=== PATIENT | male | born 1940 | race Caucasian/White ===

== ENCOUNTER → 2022-04-17 09:02 | Outpatient (BNVA) | payer MEDICARE, SELFPAY | PROVIDERS: PCP Internal Medicine; Visit Provider Anesthesiology | DX: E11.40 Type 2 diabetes mellitus with diabetic neuropathy, unspecified (principal); I50.9 Heart failure, unspecified; G89.4 Chronic pain syndrome | CPT/HCPCS: 99202 ==

== ENCOUNTER 2022-06-15 09:18 | Outpatient (REF) | payer MEDICARE, SELFPAY ==
[2022-06-15 10:53] LABS: MANUAL DIFF FLAG NO
[2022-06-15 11:44] LABS: Basophils Percent Auto 0.3 % (0-2); Eosinophils Percent Auto 0.3 % (0-4); Hematocrit 34.2 % (42.0-52.0); Hemoglobin 11.2 g/dl (14.0-18.0); Imm Gran Abs Auto 0.03 X10*3/uL (0.00-0.03); Imm Gran Pct Auto 0.3 % (0.0-0.4); Lymphocytes Absolute Auto 2.3 X10*3/uL (1.2-4.9); Mean Corpuscular HGB Conc 32.7 g/dl (31.0-36.0); Mean Corpuscular Hemoglobin 26.2 pg (27.0-33.0); Mean Corpuscular Volume 80.1 fL (80.0-98.0); Mean Platelet Volume 10.5 fL (9.4-12.4); Monocytes Percent Auto 10.4 % (2-11); Neutrophils Absolute Auto 6.6 x10*3/uL (2.0-8.3); Neutrophils Percent Auto 65.7 % (45-73); Platelet Count 236 X10*3/uL (160-400); Red Blood Count 4.27 X10*6/uL (4.60-5.80); Red Cell Distribution Width 15.9 % (11.0-16.0)
[2022-06-15 12:17] LABS: Alanine Aminotransferase 19 U/L (0-40); Albumin Level 3.8 g/dL (3.5-5.0); Alkaline Phosphatase 165 U/L (39-117); Aspartate Amino Transferase 17 U/L (5-37); Bilirubin Direct 0.5 mg/dL (0.0-0.5); Bilirubin Total 1.4 mg/dL (0.0-1.0); Total Protein 6.6 g/dL (6.5-8.0)
[2022-06-15 12:29] LABS: Erythrocyte Sedimentation Rate 12 MM/HR (0-15)
[2022-06-16 18:19] LABS: Immunoglobulin E 23 kU/L (<OR=114)
[2022-06-20 13:41] LABS: TSpotTB Invalid (Negative)
[2022-06-21 05:43] LABS: IgA 299 mg/dL (70-320); IgG 1037 mg/dL (600-1540); IgM 53 mg/dL (50-300)
== END 2022-06-15 09:19 | disposition home or self-care (01) ==
LOC: HO.LAB 09:18
PROVIDERS: PCP Internal Medicine; Visit Provider Hospitalist
DX: Z11.1 Encounter for screening for respiratory tuberculosis (principal); J41.1 Mucopurulent chronic bronchitis; R04.2 Hemoptysis; K74.60 Unspecified cirrhosis of liver; C76.0 Malignant neoplasm of head, face and neck
CPT/HCPCS: 36415; 80076; 82784; 82785; 85025; 85652; 86481; 87070; 87205; 94640; 99202

== ENCOUNTER 2022-06-22 07:43 | Outpatient (REF) | payer MEDICARE, SELFPAY ==
--- NOTE | 2022-06-22 09:52 | PFT_ITS ---
FLOWS: FEV1 69% of predicted at 1.96 L. FVC 71% of predicted at 2.87 L. FEV1 to FVC ratio of 0.68. No bronchodilator response except in small to medium airways. LUNG VOLUMES: Total lung capacity 73% of predicted at 5.20 L. Residual volume 81% of predicted at 2.19 L. Slow vital capacity 68% of predicted at 3.01 L. Expiratory reserve volume 36% of predicted at 0.43 L. Diffusion capacity is moderately decreased. IMPRESSION: Combined moderate obstructive and moderate restrictive ventilatory defect with no bronchodilator response except in small to medium airways. Decreased expiratory reserve volume suggests extrathoracic restriction likely secondary to abdominal obesity. Decreased diffusion capacity suggests emphysema. MD SHONA Rodríguez/MODL / [id number]
== END 2022-06-22 07:44 | disposition home or self-care (01) ==
LOC: HO.RESP 07:43
PROVIDERS: Visit Provider Hospitalist
DX: J41.1 Mucopurulent chronic bronchitis (principal)
CPT/HCPCS: 94060; 94727; 94729

== ENCOUNTER → 2022-07-17 10:14 | Outpatient (BNVA) | payer MEDICARE, SELFPAY | PROVIDERS: PCP Internal Medicine; Visit Provider Hospitalist | DX: J41.1 Mucopurulent chronic bronchitis (principal); R04.2 Hemoptysis; K74.60 Unspecified cirrhosis of liver; C76.0 Malignant neoplasm of head, face and neck | CPT/HCPCS: 99212 ==

== ENCOUNTER 2022-08-18 13:08 | Outpatient (REF) | payer MEDICARE, SELFPAY ==
[2022-08-18 15:07] LABS: Appearance Urine Clear; Color Urine Yellow; Glucose Urine UA Negative (Negative); Leukocyte Esterase Urine Moderate (2+) (Negative); Nitrite Urine Negative (Negative); PH 5.5 (5.0-9.0); UMIC TRIGGER UA YES; Urine Blood Negative (Negative); Urine Ketones Negative (Negative); Urine Protein Negative (Neg-Trace)
[2022-08-18 15:08] LABS: INTERNATIONAL NORM RATIO 1.7 (0.9-1.1); Prothrombin Time 20.3 SEC (10.0-13.1)
[2022-08-18 15:12] LABS: Bacteria Urine 3+ (None Seen); Hyaline Casts Urine 0-2 /LPF (0-2); RBC Urine 0-2 /HPF (0-2); Squamous Epithelial Cell Urine 0-2 /HPF (0-2); WBC Urine 21-50 /HPF (0-5)
[2022-08-18 16:19] LABS: Alanine Aminotransferase 10 U/L (0-40); Albumin Level 4.1 g/dL (3.5-5.0); Alkaline Phosphatase 128 U/L (39-117); Anion Gap 13 (12-20); Aspartate Amino Transferase 14 U/L (5-37); Blood Urea Nitrogen 30 mg/dL (9-16); Calcium 8.9 mg/dL (8.4-10.2); Carbon Dioxide 26 mmol/L (22-29); Chloride 105 mmol/L (96-108); Estimated Glomerular Filt Rate 53; Gamma Glutamyl Transpeptidase 228 U/L (11-51); Glucose Random 182 mg/dL (60-115); Iron 34 mcg/dL (45-160); Percent Iron Saturation 11 % (15-50); Potassium 4.1 mmol/L (3.3-5.1); Sodium 140 mmol/L (135-145); Total Iron Binding Capacity 308 mcg/dL (228-428); Total Protein 6.9 g/dL (6.5-8.0); Unsaturated Iron Binding 274 ug/dL
[2022-08-18 16:33] LABS: Ferritin 50 ng/mL (20-250)
[2022-08-21 04:16] LABS: Hepatitis A Antibody IgG REACTIVE (Nonreactive); ~Hepatitis A Antibody IgG 9.66 S/CO (0.00-0.99)
[2022-08-21 04:29] LABS: HBc Num1 0.12 S/CO (0.00-0.79); HBsAGNum1 0.28 S/CO (0.00-0.99); Hepatitis B Core Antibody Nonreactive (Nonreactive); Hepatitis B Surface Antigen Negative (Negative); ~HepC Num1 0.18 S/CO (0.00-0.79); ~Hepatitis B Surface Antibody NONREACTIVE (Nonreactive); ~Hepatitis C Antibody Nonreactive (Nonreactive)
[2022-08-24 12:33] LABS: Liver Kidney Microsomal Ab <=20.0 U (<=20.0)
[2022-08-24 16:29] LABS: Anti Nuclear Antibody Pattern Nuclear, Homogeneous; Anti Nuclear Antibody Screen POSITIVE (NEGATIVE)
[2022-08-24 20:58] LABS: Alk.Phos Iso. Macrohepatic 0 % (<=0); Alk.Phos Isoenzymes Bone 22 % (28-66); Alk.Phos Isoenzymes Intest 11 % (1-24); Alk.Phos Isoenzymes Liver 68 % (25-69); Alk.Phos Isoenzymes Placental 0 % (<=0); Alk.Phos Isoenzymes Total 108 U/L (35-144)
[2022-08-25 13:03] LABS: Smooth Muscle Antibody <20 U (<20)
== END 2022-08-18 13:09 | disposition home or self-care (01) ==
LOC: HO.LAB 13:08
PROVIDERS: PCP Internal Medicine; Visit Provider Internal Medicine
DX: K74.60 Unspecified cirrhosis of liver (principal); K76.89 Other specified diseases of liver; R18.8 Other ascites; J44.9 Chronic obstructive pulmonary disease, unspecified; L98.9 Disorder of the skin and subcutaneous tissue, unspecified; I50.9 Heart failure, unspecified; Z85.810 Personal history of malignant neoplasm of tongue; Z87.891 Personal history of nicotine dependence; Z79.01 Long term (current) use of anticoagulants; Z11.59 Encounter for screening for other viral diseases; Z72.89 Other problems related to lifestyle
CPT/HCPCS: 36415; 80053; 81001; 82728; 82977; 83540; 84080; 85610; 86015; 86038; 86039; 86376; 86704; 86706; 86708; 86803; 87340; 99202

== ENCOUNTER 2022-08-30 08:13 | Day surgery (SDC) | payer OTHER, SELFPAY ==
[2022-08-30] VITALS (8 sets, daily range): BP systolic 109–120; BP diastolic 60–72; PULSE 60–97; RESP 14–18; TEMP 36.6–36.8; O2SAT 94–95; BMI 30.7
--- NOTE | ~2022-08-30 | US_ITS ---
EXAMINATION: US-GUIDED PARACENTESIS CLINICAL INDICATION: Ascites. COMPARISON: None available. TECHNIQUE: Following explaining ultrasound-guided paracentesis procedure, benefits and risk, a written consent was obtained. Patient was placed supine on ultrasound stretcher and preliminary ultrasound imaging was obtained. An optimal site was selected, marked, cleaned and draped in the usual sterile manner. 1% local Xylocaine was inserted at puncture site. Through a small skin incision, a 5-English SkuRun catheter was advanced into the right lower quadrant peritoneal space. After observing fluid return, the stylet was withdrawn and catheter connected to vacuum bottle via connecting cannula. After obtaining all fluid and observing normal fluid return, catheter was withdrawn and complete hemostasis achieved at puncture site. Sterile dressing applied postprocedure. Patient tolerated the procedure extremely well. FINDINGS: There is moderate free fluid in the peritoneal space. Approximately 2.9 L of cloudy red fluid was removed. US/US paracentesis abd w/image IMPRESSION: Successful ultrasound-guided diagnostic and therapeutic paracentesis.
[2022-08-30 08:42] LABS: Glucose, Whole Blood 200 mg/dL (60-115)
[2022-08-30 09:30] LABS: MANUAL DIFF FLAG NO
[2022-08-30 09:33] LABS: Basophils Percent Auto 0.5 % (0-2); Eosinophils Absolute Auto 0.1 X10*3/uL (0.0-0.4); Eosinophils Percent Auto 1.4 % (0-4); Hematocrit 34.1 % (42.0-52.0); Hemoglobin 11.1 g/dl (14.0-18.0); Imm Gran Abs Auto 0.02 X10*3/uL (0.00-0.03); Imm Gran Pct Auto 0.3 % (0.0-0.4); Lymphocytes Absolute Auto 1.3 X10*3/uL (1.2-4.9); Lymphocytes Percent Auto 20.2 % (20-40); Mean Corpuscular HGB Conc 32.6 g/dl (31.0-36.0); Mean Corpuscular Hemoglobin 26.4 pg (27.0-33.0); Mean Platelet Volume 10.5 fL (9.4-12.4); Monocytes Percent Auto 15.2 % (2-11); Neutrophils Percent Auto 62.4 % (45-73); Platelet Count 279 X10*3/uL (160-400); Red Blood Count 4.21 X10*6/uL (4.60-5.80); Red Cell Distribution Width 16.1 % (11.0-16.0); White Blood Count 6.4 X10*3/uL (4.8-10.8)
[2022-08-30] MEDS: Lidocaine HCl 1 % MPF 5 ML VIAL SUBCUT (10:42)
[2022-08-30 11:00] LABS: MN% 89.4 %; PMN% 10.6 %; RBC Peritoneal Fluid 0.029 X10*6/uL; WBC Peritoneal Fluid 1.772 X10*3/uL
[2022-08-30 12:07] LABS: Neutrophils Peritoneal Fluid 7 %
[2022-08-30 12:08] LABS: BF Shift QC OK YES; Lymphocyte Peritoneal Fl 28 %; Monocytes Peritoneal Fl 2 %; Other Peritioneal Fl 63 %
[2022-08-30 18:11] LABS: Total Protein Peritoneal Fluid 4.4 GM/DL
== END 2022-08-30 12:49 | disposition home or self-care (01) ==
PROVIDERS: Radiology Diagnostic Radiology; PCP Internal Medicine; Visit Provider Internal Medicine
DX: R18.8 Other ascites (principal); K74.60 Unspecified cirrhosis of liver; I48.91 Unspecified atrial fibrillation; I25.10 Atherosclerotic heart disease of native coronary artery without angina pectoris; I11.0 Hypertensive heart disease with heart failure; I50.9 Heart failure, unspecified; Z95.1 Presence of aortocoronary bypass graft; J44.9 Chronic obstructive pulmonary disease, unspecified; E78.00 Pure hypercholesterolemia, unspecified; G47.33 Obstructive sleep apnea (adult) (pediatric); Z79.01 Long term (current) use of anticoagulants; Z87.891 Personal history of nicotine dependence
CPT/HCPCS: 36415; 49083; 82042; 82947; 84157; 85025; 88112; 88305; 89051

== ENCOUNTER 2022-09-12 10:27 | Outpatient (REF) | payer OTHER, SELFPAY ==
--- NOTE | ~2022-09-12 | MR_ITS ---
EXAMINATION: MR ABDOMEN WITHOUT AND WITH CONTRAST CLINICAL INFORMATION: Other specified diseases of the liver. Liver cyst. COMPARISON: Previous MRI July 2017 and ultrasound guided paracentesis August 2022. TECHNIQUE: MR abdomen was performed without and with use of 10 mL intravenous Gadavist contrast. Postcontrast images are performed in multiphase dynamic sequences. Imaging was performed in 3 planes. FINDINGS: LUNG BASES: Small loculated right pleural effusion. The heart is slightly enlarged. LIVER, GALLBLADDER, AND BILIARY TREE: Cirrhotic-appearing liver. There is no appreciable signal loss in the liver to suggest significant fatty infiltration. There are multiple liver cysts. Largest cysts measure approximately 1 x 1.5 cm. No suspicious liver lesion. The gallbladder is unremarkable. There is no biliary duct dilatation. PANCREAS: Unremarkable. SPLEEN: Small splenic versus splenule. This measures 3.5 cm in length. There is a 0.7 cm lesion inferiorly suggestive of a cyst. ADRENAL GLANDS: Normal. KIDNEYS AND URETERS: Multiple bilateral renal simple appearing cysts. Largest cyst measures 5.6 x 6.3 cm exophytic to the upper pole of the left kidney. No hydronephrosis. GASTROINTESTINAL TRACT: No bowel obstruction. Stool throughout the colon questionable for constipation. ABDOMEN/ABDOMINAL WALL: There is a small amount of ascites. There are multiple peritoneal masses seen, greatest in the left upper quadrant. These are intermediate signal on T1 and T2-weighted sequences and demonstrate homogeneous enhancement. The lesions enhance on early arterial phase imaging and remain enhanced on later sequences. Lesions follow the signal of the questioned remaining small spleen versus splenule. These appear similar to previous outside exam July 2017 and probably represent splenules. There is a similar signal lesion in the left abdominal wall for example axial image 75 postcontrast series 102 that is stable as well. No hernia. LYMPH NODES: No lymphadenopathy. VASCULAR: Lower abdominal aortic aneurysm measuring 3.5 x 4.2 cm in AP and transverse dimension. This is similar to outside MRI from 2018. Hepatic veins and intrahepatic IVC appear prominent questionable for evidence of right heart compromise. The portal and hepatic veins are patent. There are small left upper quadrant varices. OSSEOUS STRUCTURES: Degenerative changes of the spine. Bright subcentimeter lesion in the L1 vertebral body probably representing a benign hemangioma. MR/MR abdomen wo/w con IMPRESSION: Cirrhotic-appearing liver. Multiple liver cysts. No suspicious liver lesion. Question small spleen versus splenule. This contains a 7 mm cyst. This is similar to 2018 exam. Numerous enhancing peritoneal lesions similar to 2018 probably representing multiple splenules or splenosis. This includes a small subcentimeter lesion in the left anterior lateral abdominal wall. Small amount of ascites. Small varices. Bilateral renal cysts. Abdominal aortic aneurysm measuring 3.5 x 4.2 cm in AP and transverse dimension. This is not appreciably changed from previous MRI July 2017.
== END 2022-09-12 10:28 | disposition home or self-care (01) ==
LOC: HO.MRI 10:27
PROVIDERS: PCP Internal Medicine; Visit Provider Internal Medicine
DX: K76.89 Other specified diseases of liver (principal)
CPT/HCPCS: 74183; A9585

== ENCOUNTER → 2022-09-22 12:44 | Outpatient (BNVA) | payer OTHER, SELFPAY | PROVIDERS: PCP Internal Medicine; Visit Provider Internal Medicine | DX: R18.8 Other ascites (principal); K74.60 Unspecified cirrhosis of liver; I50.810 Right heart failure, unspecified; L98.9 Disorder of the skin and subcutaneous tissue, unspecified | CPT/HCPCS: 99212 ==

== ENCOUNTER → 2022-10-18 10:59 | Outpatient (BNVA) | payer MEDICARE, SELFPAY | PROVIDERS: PCP Internal Medicine; Visit Provider Hospitalist | DX: R04.2 Hemoptysis (principal); J41.1 Mucopurulent chronic bronchitis; K74.60 Unspecified cirrhosis of liver; C76.0 Malignant neoplasm of head, face and neck | CPT/HCPCS: 99212 ==

== ENCOUNTER 2022-11-28 14:29 | Outpatient (REF) | payer MEDICARE, SELFPAY ==
[2022-11-28 15:20] LABS: Hematocrit 44.4 % (42.0-52.0); Mean Corpuscular HGB Conc 31.5 g/dl (31.0-36.0); Mean Corpuscular Hemoglobin 23.6 pg (27.0-33.0); Platelet Count 319 X10*3/uL (160-400); Red Blood Count 5.92 X10*6/uL (4.60-5.80); Red Cell Distribution Width 16.9 % (11.0-16.0); White Blood Count 9.3 X10*3/uL (4.8-10.8)
[2022-11-28 16:08] LABS: Iron 35 mcg/dL (45-160); Percent Iron Saturation 12 % (15-50); Total Iron Binding Capacity 289 mcg/dL (228-428); Unsaturated Iron Binding 254 ug/dL
[2022-11-28 16:24] LABS: Ferritin 58 ng/mL (20-250)
[2022-11-30 16:03] LABS: Immunoglobulin A 431 mg/dL (70-320)
[2022-12-04 13:44] LABS: Transglutaminase IgA <1.0 U/mL
== END 2022-11-28 14:30 | disposition home or self-care (01) ==
LOC: HO.LAB 14:29
PROVIDERS: PCP Internal Medicine; Visit Provider Internal Medicine
DX: D64.9 Anemia, unspecified (principal)
CPT/HCPCS: 36415; 82728; 82784; 83540; 85027; 86364

== ENCOUNTER 2022-12-22 12:37 | Day surgery (SDC) | payer OTHER, SELFPAY ==
[2022-12-20 14:53] VITALS: BMI 29.1
--- NOTE | 2022-12-21 14:45 | PC.NURSE ---
Patient expressed concerns regarding late appt time/NPO midnight & diabetic status. Anesthesia Dr Valle consulted and had this RN advise the patient that he is to have no solid foods after midnight tonight, but he is able to have clear liquids until 8am. Patient also advised not to take any diabetic medications in the morning and to check sugars. Patient reassured we would check his sugar on arrival & give medications through the IV as necessary. Patient verbalized agreeance with the plan - he would only have max yobani to drink after midnight, would take only his diltiazem (per written instructions) in the morning and have nothing by mouth after 8am.
--- NOTE | 2022-12-21 14:55 | PC.NURSE ---
Patient time of arrival moved up d/t cancellation. Called back to advise no clear liquids after 0700. Verbalized understanding of new plan and time of arrival.
--- NOTE | 2022-12-22 12:45 | HO.ANESPROP2 ---
[facility] Active Problems Active Problems: All Active Problems (Updated 12/20/22 @ 14:52 by Seda Brown RN) Diabetic neuropathy (Acute) Chronic pain syndrome (Acute) Congestive heart failure (Acute) Ascites (Acute) Skin lesion of cheek (Acute) Anemia (Acute) Head and neck cancer (Acute) Liver cirrhosis (Acute) Hemoptysis (Acute) COPD (chronic obstructive pulmonary disease) (Acute) Tobacco use (Acute) Hyperlipidemia (Acute) Atrial fibrillation (Acute) Claudication (Acute) SOB (shortness of breath) (Acute) CAD (coronary artery disease) (Acute) Recurrent spontaneous pneumothorax (Acute) Hx of CABG (Acute) SARANYA (obstructive sleep apnea) (Acute) Hypertension (Acute) Past Medical History Medical History Atrial fibrillation CAD (coronary artery disease) Claudication COPD (chronic obstructive pulmonary disease) Head and neck cancer Hemoptysis History of abdominal paracentesis Hyperlipidemia Hypertension Liver cirrhosis SARANYA (obstructive sleep apnea) Recurrent spontaneous pneumothorax SOB (shortness of breath) Tobacco use Surgical History Surgical History History of esophagogastroduodenoscopy (EGD) History of lung surgery History of neck surgery Hx of CABG Hx of cardiac catheterization Hx of colonoscopy Hx of splenectomy History of Problems with Anesthesia: No Social History Social History Patient Tobacco Use Status: Former Tobacco user Quit Date: 1980 Tobacco use type: Cigarette Years Smoked: 30+ Years Use of substances other than those prescribed or required for medical reasons: No Are you DNR?: No Advance Directives: No Advance Directives Information Provided: Yes Meds Allergies Allergy/AdvReac Type Severity Reaction Status Date / Time acetaminophen [From Percocet] AdvReac Severe Headache Verified 12/22/22 13:10 oxycodone [From Percocet] AdvReac Severe Headache Verified 12/22/22 13:10 meperidine [From Demerol] AdvReac Unknown Headache Verified 12/22/22 13:10 Ofozqde-TAZ-GpO Reductase AdvReac Unknown Muscle Pain Verified 12/22/22 13:10 Inhibitor Home Medications Medication Instructions Recorded Confirmed Last Taken Type albuterol sulfate 90 mcg/actuation 90 mcg inhalation Q4H PRN 04/17/22 12/20/22 Unknown History aerosol inhaler Shortness Of Breath diclofenac sodium 1 % topical gel 1 ea topical DAILY 04/17/22 12/20/22 Unknown History insulin aspar prt-insulin aspart 1 sliding scale dose subcut TID 04/17/22 12/22/22 Unknown History 100 unit/mL (70-30) subcutaneous soln (Novolog Mix 70-30 U-100 Insuln) insulin glargine 100 unit/mL 46 unit subcut DAILY 04/17/22 12/22/22 Unknown History subcutaneous solution omeprazole 20 mg capsule,delayed 20 mg PO DAILY 04/17/22 12/20/22 Unknown History release tamsulosin 0.4 mg capsule (Flomax) 0.4 mg PO DAILY 04/17/22 12/20/22 Unknown History apixaban 5 mg tablet (Eliquis) 5 mg PO BID 07/17/22 12/20/22 Unknown History diltiazem HCl 180 mg 180 mg PO DAILY 07/17/22 12/20/22 12/22/22 09:00 History tablet,extended release 24 hr ezetimibe 10 mg tablet (Zetia) 10 mg PO DAILY 07/17/22 12/20/22 Unknown History nebulizers 07/17/22 Unknown History finasteride 5 mg tablet (Proscar) 5 mg PO DAILY 08/18/22 12/20/22 Unknown History empagliflozin 10 mg tablet 10 mg PO DAILY 09/22/22 12/20/22 12/22/22 09:00 History (Jardiance) torsemide 20 mg tablet 80 mg PO DAILY 09/22/22 12/20/22 Unknown History spironolactone 25 mg tablet 25 mg PO DAILY 12/20/22 12/20/22 Unknown History Exam Exam Date and Time: December 22, 2022 1245 Height,Weight and Vital Signs: Height 5 ft 10 in Weight 92.079 kg Airway Mallampati Class: II TM Dist: >3cm Neck ROM: Full Denture: Upper and Lower Loose/Missing/Broken Teeth: Yes, Upper and Lower Heart: RRR Lungs: CTA Assessment and Plan Assessment Anesthesia Assessment: Anesthesia Plan Discussed and Chart Reviewed Final Anesthetic Review History of Problems with Anesthesia: No NPO: Yes ASA Class: IV Final Preanesthetic Review: Meds/Allgs Chart Reviewed, Consent Obtained/Reviewed and Anes Risks/Benef Reviewed Patient Risk: High Procedure Risk: Intermediate Anesthetic Plan Anesthetic Plan: MAC: Disposition: Standard PACU
[2022-12-22 12:57] VITALS: BMI 25.3
[2022-12-22 13:15] VITALS: BP 139/79; PULSE 93; RESP 18; TEMP 36.1; O2SAT 95
--- NOTE | 2022-12-22 13:15 | MHC.SHP ---
Pre-Procedural Eval Section A Date of Service: 12/22/22 Section B Chief Complaint: Unspecified cirrhosis of liver,Esophageal varices Details of Present Illness: PMH: Atrial fibrillation CAD (coronary artery disease) Claudication COPD (chronic obstructive pulmonary disease) Head and neck cancer Hemoptysis Hyperlipidemia Hypertension Liver cirrhosis SARANYA (obstructive sleep apnea) Recurrent spontaneous pneumothorax SOB (shortness of breath) Tobacco use Surgical History: History of esophagogastroduodenoscopy (EGD) Hx of CABG Hx of colonoscopy Social History: Patient Tobacco Use Status: Former Tobacco user Tobacco use type: Cigarette Years Smoked: 30+ Years Allergies: Allergies Allergy/AdvReac Type Severity Reaction Status Date / Time acetaminophen [From Percocet] AdvReac Severe Headache Verified 12/22/22 13:10 oxycodone [From Percocet] AdvReac Severe Headache Verified 12/22/22 13:10 meperidine [From Demerol] AdvReac Unknown Headache Verified 12/22/22 13:10 Zfydhax-LOF-EqR Reductase AdvReac Unknown Muscle Pain Verified 12/22/22 13:10 Inhibitor Review of Systems Review of Systems Comment: Ten point ROS negative Exam Exam Comment: Gen appear: No acute distress HEENT: no icterus Chest: No overt resp distress Abd: soft, nontender, nondistended Psych: Stable affect, answering questions appropriately Neuro: A/Ox3 noted to move all extremities spontaneously Ext: no peripheral edema Plan Diagnosis/Plan: Unchanged I have reviewed the history and physical and performed a pertinent physical examination on my patient. No changes have occurred unless specified. Time Spent With Patient Time: Total time managing care of this patient today ____ minutes.
--- NOTE | 2022-12-22 13:16 | P.OP_ITS ---
Operative Note Operative Note Date of Service: 12/22/22 Narrative: Procedure: Esophagogastroduodenoscopy Endoscopist: Marcella Turpin MD Indication: Variceal screening Anesthesia Provider: Dr Betty Weston Anesthesia Type: MAC ?? EGD Procedure:?? The procedure, indications, preparation and potential complications were reviewe d with the patient, who indicated understanding and gave written informed consent to proceed. A physical exam was performed. The endoscope was introduced through the mouth, and advanced to the second part of duodenum. The mucosa was carefully examined on slow withdrawal of the endoscope. The patient tolerated the procedure well. There were no immediate complications.? ? EGD Findings:? * Esophagus:? Normal mucosa noted in the entire esophagus. The Z line was at 42 cm. No varices were noted on full insufflation of the esophagus. * Stomach:? Diffuse congestion and erythema in mosaic pattern consistent with portal hypertensive gastropathy was noted in the cardia and fundus of the stomach. Small gastric varix vs prominent fold noted in the fundus. * Duodenum:? Normal mucosa was noted in the whole of the examined duodenum. ? EGD Impressions:? * Normal esophagus * Portal hypertensive gastropathy * ?? Gastric varix vs prominent rugal fold * Normal duodenum ?? Recommendations:?? * Recommend repeat EGD in 2 years for variceal surveillance * Management of R heart failure and volume as per Cardiology
[2022-12-22] MEDS: Lactated Ringers 1,000 ML 100 ML IVCONT (13:29)
[2022-12-22 13:35] LABS: Glucose, Whole Blood 135 mg/dL (60-115)
[2022-12-22 13:45] VITALS: BP 105/66; PULSE 75; RESP 20; TEMP 36.1; O2SAT 98
[2022-12-22 14:00] VITALS: BP 117/72; PULSE 72; RESP 16; TEMP 36.2; O2SAT 95
== END 2022-12-22 14:36 | disposition home or self-care (01) ==
PROVIDERS: PCP Internal Medicine; Visit Provider Internal Medicine
PROC: 0DJ08ZZ Inspection of Upper Intestinal Tract, Via Natural or Artificial Opening Endoscopic (ICD-10-PCS; CPT 43235; principal; 2022-12-22 14:20)
DX: I85.00 Esophageal varices without bleeding (principal); K76.6 Portal hypertension; K31.89 Other diseases of stomach and duodenum; R18.8 Other ascites; K74.60 Unspecified cirrhosis of liver; L98.9 Disorder of the skin and subcutaneous tissue, unspecified; I11.0 Hypertensive heart disease with heart failure; I50.810 Right heart failure, unspecified; J43.9 Emphysema, unspecified; R14.0 Abdominal distension (gaseous); D64.9 Anemia, unspecified; E11.40 Type 2 diabetes mellitus with diabetic neuropathy, unspecified; E78.5 Hyperlipidemia, unspecified; I48.91 Unspecified atrial fibrillation; I25.10 Atherosclerotic heart disease of native coronary artery without angina pectoris; Z95.1 Presence of aortocoronary bypass graft; Z85.810 Personal history of malignant neoplasm of tongue; Z87.891 Personal history of nicotine dependence; Z79.899 Other long term (current) drug therapy; Z79.01 Long term (current) use of anticoagulants; Z79.4 Long term (current) use of insulin
CPT/HCPCS: 43235; 82947

== ENCOUNTER → 2022-12-22 12:37 | Outpatient (BNV) | payer MEDICARE, SELFPAY | PROVIDERS: PCP Internal Medicine; Visit Provider Internal Medicine | DX: I86.4 Gastric varices (principal); K76.6 Portal hypertension | CPT/HCPCS: 43235 ==

== ENCOUNTER 2023-01-03 10:23 | Outpatient (AMB) | payer MEDICARE, SELFPAY ==
--- NOTE | 2023-01-03 10:26 | A.OFFVIS_ITS ---
Intake Vital Signs 01/03/23 10:29 Height 5 ft 10 in Weight 182 lb 15.739 oz BMI 26.3 BP 116/58 L Blood Pressure Location Lt brachial Position Sitting Pulse 76 Intake Visit Reasons: S/p egd Intake Note: Shane presents in the office as a follow up EGD. CC: No concerns since the procedure. Just here for the results. 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 08/18/22: History was the patient, who states that June was the first time he ever found out having any sort of liver disease. He did have x2 admissions to [facility] in May for fluid accumulation of the abdomen as well as lungs, but was told it was ? due to diabetes. He is not aware if he had any dedicated liver imaging at [facility]. Currently, has fatigue and abdominal distention, but otherwise denies shortness of breath, abdominal pain, nausea, vomiting, changes in bowel habits. No blood in stool. Did have hemoptysis earlier on in the year. Has been noticing abdominal distention since May as mentioned. He was seen by Dr. Lopez for hemoptysis, and had a CT chest done that also captured cirrhotic appearing liver with this as well as ascites. Labs available from the system include CBC that does not show thrombocytopenia. LFTs show mildly elevated bilirubin and alk-phos. No hepatitis serology is available. Patient does not have any history of alcohol use disorder. Remember his having hepatitis a almost 50 years ago, which he was told was food-borne. No IV drug use. Does not recall 1st degree family history of liver disease. 09/22/22: Patient here for follow-up after his blood work and paracentesis. Labs reviewed and paracentesis fluid suggestive of high SAAG 1.1 high total protein i.e cardiac ascites. Hepatitis serologies are negative for chronic hepatitis. 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 Licensing Director is Dr Vincent and reports being told about R sided heart failure. Also tells me he is being considered for cardio-MEMS device. Cardiology note (Dr. Mercedes Vincent) 08/08/2022:? 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 Getting diuresis with Lasix 80 b.i.d..? Also being referred for CardioMEMS. Echocardiogram 05/15/2022: Normal left ventricular size, EF 55-60%.? Severely dilated left atrium.? Severely dilated right atrium.? Elevated right atrial pressures.? Enlarged right ventricular size.? Reduced right ventricular systolic function.? Moderate aortic stenosis.? Moderate mitral stenosis.? Moderate tricuspid regurgitation.? Elevated pulmonary artery pressure. Overall consistent with clinical impression of cardiac ascites as noted before. 12/22/22: EGD: * Normal esophagus * Portal hypertensive gastropathy * ?? Gastric varix vs prominent rugal fold * Normal duodenum 01/03/23: Reports no gastrointestinal sx. Was told about elevated pressures on cardio-MEMS last week and waiting to hear from his bag filler Radha Alonso and Melisa re diuretic adjustment. Has also been seen by Derm and both the lesions (cheek and back) are benign. PFSH Medical History Atrial fibrillation CAD (coronary artery disease) Claudication COPD (chronic obstructive pulmonary disease) GERD (gastroesophageal reflux disease) Head and neck cancer Hemoptysis History of abdominal paracentesis Hyperlipidemia Hypertension Liver cirrhosis SARANYA (obstructive sleep apnea) Recurrent spontaneous pneumothorax SOB (shortness of breath) Tobacco use Surgical History History of esophagogastroduodenoscopy (EGD) History of lung surgery History of neck surgery Hx of CABG Hx of cardiac catheterization Hx of colonoscopy Hx of splenectomy Social History Patient Tobacco Use Status: Former Tobacco user Quit Date: 1980 Tobacco use type: Cigarette Years Smoked: 30+ Years Review of Systems Const All systems reviewed & are unremarkable except as noted in HPI and below Physical Exam Vital Signs: Last Vital Signs Pulse 76 01/03/23 10:29 BP 116/58 L 01/03/23 10:29 BMI result Body Mass Index 26.3 Gen appear: Elderly male, in no acute distress HEENT: no icterus, no cervical lymphadenopathy CVS: S1/S2, regular Abd: soft, nontender, mildly distended, Psych: Stable affect, answering questions appropriately Neuro: A/Ox3 noted to move all extremities spontaneously, no asterixis Ext: + peripheral edema Assessment & Plan Assessment & Plan (1) Ascites: Code(s): R18.8 - Other ascites (2) Liver cirrhosis: Code(s): K74.60 - Unspecified cirrhosis of liver (3) Congestive heart failure: Code(s): I50.9 - Heart failure, unspecified Plan 1. Decompensated cirrhosis: MELD-Na 15; Child Class B Appears to be cardiac cirrhosis based on paracentesis labs and echocardiogram report. - Currently on Torsemide 60mg BID and Spironolactone 25mg. Will benefit from increasing spironolactone to 100mg, but would defer to Cardiology as his R heart pressures are being closely monitored by them. - Has PHG but no esophageal varices on most recent EGD. Next EGD will be due in 2024. - He will also need q6m liver imaging for HCC screening. Next US Abd to be scheduled in March 2023. Reminder set. Follow up in 6 months Coding Level of Care Code Est Pt Level 4 (51709) Diagnoses Ascites R18.8 Liver cirrhosis K74.60 Congestive heart failure I50.9
[2023-01-03 10:29] VITALS: BP 116/58; PULSE 76; BMI 26.3
== END 2023-01-03 11:10 | disposition home or self-care (01) ==
PROVIDERS: PCP Internal Medicine; Visit Provider Internal Medicine
DX: R18.8 Other ascites (principal); K74.60 Unspecified cirrhosis of liver; I50.9 Heart failure, unspecified
CPT/HCPCS: 99214

== ENCOUNTER → 2023-01-03 10:23 | Outpatient (BNVA) | payer MEDICARE, SELFPAY | PROVIDERS: PCP Internal Medicine; Visit Provider Internal Medicine | DX: K74.60 Unspecified cirrhosis of liver (principal); I50.9 Heart failure, unspecified; R18.8 Other ascites | CPT/HCPCS: 99212 ==

== ENCOUNTER 2023-04-10 07:35 | Outpatient (REF) | payer MEDICARE, SELFPAY ==
--- NOTE | ~2023-04-10 | US_ITS ---
EXAMINATION: US ABDOMEN COMPLETE CLINICAL INFORMATION: Unspecified cirrhosis of liver. COMPARISON: MRI abdomen 09/12/2022. TECHNIQUE: Real-time imaging of the abdominal viscera. Limited visualization due to bowel gas. FINDINGS: PANCREAS: Limited visualization of pancreatic tail and head. Imaged portion of pancreatic body is unremarkable. ABDOMINAL AORTA: Limited visualization. Distal abdominal aortic aneurysm measures 3.8 cm AP and 3.9 cm transverse. INFERIOR VENA CAVA: Visualized portions are normal. LIVER: Possible prominence of the hepatic veins. Multiple hepatic cysts, largest measured left hepatic lobe 1.9 x 2.0 x 2.1 cm appears complex with septations and calcifications. Heterogeneous hepatic echotexture with nodular hepatic contour characteristic of cirrhosis. Limited visualization. GALLBLADDER: Focal thickening of the gallbladder wall of 0.5 cm with possible nodular mural projections, best appreciated on supine positioning. Limited visualization COMMON BILE DUCT: Normal in caliber measuring 0.3 cm in diameter. RIGHT KIDNEY: A 0.8 x 0.6 x 0.7 cm midpole cyst with benign features. There is no indication for follow up imaging. Additional smaller renal cysts, some of which are too tiny to characterize and difficult to characterize due to limited visualization. Small amount of perinephric fluid along the lower pole of the right kidney. No hydronephrosis or renal calculi. The kidney measures 12.4 cm in maximum dimension. LEFT KIDNEY: 4.8 x 6.1 x 4.3 cm left renal upper pole cyst with benign features. There is no indication for follow up imaging. Additional smaller left renal cysts, some of which are difficult to characterize due to limited visualization and small size. No hydronephrosis or renal calculi. The kidney measures 12.8 cm in maximum dimension. SPLEEN: Spleen is surgically absent. The soft tissue masses felt to represent splenules on prior CT scan are not clearly visualize, although visualization severely limited due to bowel gas. FREE FLUID: None. US/US abdomen complete IMPRESSION: 1. Heterogeneous hepatic echotexture with nodular contour compatible with given history of cirrhosis. Multiple hepatic cysts also characterized on MR abdomen of 09/19/2022. 2. Spleen is surgically absent. The small soft tissue masses identified in the left upper quadrant on the prior exam felt to represent splenules are not identified today, however, visualization severely limited due to bowel gas. 3. Abdominal aortic aneurysm measures 3.8 x 3.9 cm and is not appreciably changed from MRI of 09/12/2022. 4. Focal thickening of the gallbladder wall of 0.5 cm with possible nodular mural projections, best appreciated on supine positioning. Limited visualization. Correlation with the clinical exam recommended. Additional evaluation with MRI should be considered.
== END 2023-04-10 07:36 | disposition home or self-care (01) ==
LOC: HO.US 07:35
PROVIDERS: PCP Internal Medicine; Visit Provider Internal Medicine
DX: K74.60 Unspecified cirrhosis of liver (principal)
CPT/HCPCS: 76700

== ENCOUNTER 2023-10-24 12:18 | Outpatient (REF) | payer MEDICARE, SELFPAY ==
[2023-10-24 13:37] LABS: Hematocrit 49.8 % (42.0-52.0); Hemoglobin 16.6 g/dl (14.0-18.0); Mean Corpuscular HGB Conc 33.3 g/dl (31.0-36.0); Mean Corpuscular Hemoglobin 28.2 pg (27.0-33.0); Mean Corpuscular Volume 84.7 fL (80.0-98.0); Mean Platelet Volume 10.3 fL (9.4-12.4); Platelet Count 252 X10*3/uL (160-400); Red Blood Count 5.88 X10*6/uL (4.60-5.80); Red Cell Distribution Width 14.3 % (11.0-16.0); White Blood Count 9.5 X10*3/uL (4.8-10.8)
[2023-10-24 13:44] LABS: INTERNATIONAL NORM RATIO 1.3 (0.9-1.1); Prothrombin Time 15.5 SEC (11.1-13.3)
[2023-10-24 14:16] LABS: Alanine Aminotransferase 17 U/L (0-40); Albumin Level 4.3 g/dL (3.5-5.0); Alkaline Phosphatase 77 U/L (39-117); Anion Gap 15 (12-20); Aspartate Amino Transferase 18 U/L (5-37); Bilirubin Total 0.6 mg/dL (0.0-1.0); Blood Urea Nitrogen 35 mg/dL (9-16); Calcium 9.8 mg/dL (8.4-10.2); Carbon Dioxide 24 mmol/L (22-29); Chloride 101 mmol/L (96-108); Estimated Glomerular Filt Rate 51; Glucose Random 186 mg/dL (60-115); Potassium 4.4 mmol/L (3.3-5.1); Sodium 136 mmol/L (135-145); Total Protein 7.9 g/dL (6.5-8.0)
== END 2023-10-24 12:19 | disposition home or self-care (01) ==
LOC: HO.LAB 12:18
PROVIDERS: PCP Internal Medicine; Visit Provider Internal Medicine
DX: K74.60 Unspecified cirrhosis of liver (principal); R18.8 Other ascites; I50.9 Heart failure, unspecified; Z87.891 Personal history of nicotine dependence; Z79.899 Other long term (current) drug therapy
CPT/HCPCS: 36415; 80053; 85027; 85610; 99212

== ENCOUNTER 2023-10-24 12:18 | Outpatient (AMB) | payer MEDICARE, SELFPAY ==
[2023-10-24 12:25] VITALS: BP 112/60; PULSE 76; BMI 27.8
--- NOTE | 2023-10-24 12:25 | A.OFFVIS_ITS ---
Vital Signs 10/24/23 12:25 Height 5 ft 10 in Weight 194 lb 0.108 oz BMI 27.8 BP 112/60 Blood Pressure Location Rt brachial Position Sitting Pulse 76 Intake Visit Reasons: follow up r/s from 08/06 Intake Note: Shane presents in the office as a follow up reschedule from 08/06 CC: He would like to discuss the medication flomax that he is on. He states that a couple weeks ago he gained about 9ls in 2.5 weeks. He got ahold of the heart Dr and he was switched to tamsulosin 40mg. He started 3 days ago and he has gone down 1.5lbs since starting it. He was told his lungs are crackly and he feels there may be some fluids in his lungs. GI - he felt like his stomach was hard last week like he was retaining water but now it has gotten a lot better. 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 08/18/22: History was the patient, who states that June was the first time he ever found out having any sort of liver disease. He did have x2 admissions to [facility] in May for fluid accumulation of the abdomen as well as lungs, but was told it was ? due to diabetes. He is not aware if he had any dedicated liver imaging at [facility]. Currently, has fatigue and abdominal distention, but otherwise denies shortness of breath, abdominal pain, nausea, vomiting, changes in bowel habits. No blood in stool. Did have hemoptysis earlier on in the year. Has been noticing abdominal distention since May as mentioned. He was seen by Dr. Lopez for hemoptysis, and had a CT chest done that also captured cirrhotic appearing liver with this as well as ascites. Labs available from the system include CBC that does not show thrombocytopenia. LFTs show mildly elevated bilirubin and alk-phos. No hepatitis serology is available. Patient does not have any history of alcohol use disorder. Remember his having hepatitis a almost 50 years ago, which he was told was food-borne. No IV drug use. Does not recall 1st degree family history of liver disease. 09/22/22: Patient here for follow-up after his blood work and paracentesis. Labs reviewed and paracentesis fluid suggestive of high SAAG 1.1 high total protein i.e cardiac ascites. Hepatitis serologies are negative for chronic hepatitis. 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 Care Tech is Dr Vincent and reports being told about R sided heart failure. Also tells me he is being considered for cardio-MEMS device. Cardiology note (Dr. Mercedes Vincent) 08/08/2022:? 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 Getting diuresis with Lasix 80 b.i.d..? Also being referred for CardioMEMS. Echocardiogram 05/15/2022: Normal left ventricular size, EF 55-60%.? Severely dilated left atrium.? Severely dilated right atrium.? Elevated right atrial pressures.? Enlarged right ventricular size.? Reduced right ventricular systolic function.? Moderate aortic stenosis.? Moderate mitral stenosis.? Moderate tricuspid regurgitation.? Elevated pulmonary artery pressure. Overall consistent with clinical impression of cardiac ascites as noted before. 12/22/22: EGD: * Normal esophagus * Portal hypertensive gastropathy * ?? Gastric varix vs prominent rugal fold * Normal duodenum 01/03/23: Reports no gastrointestinal sx. Was told about elevated pressures on cardio-MEMS last week and waiting to hear from his assistant real estate manager Radha Alonso and Melisa re diuretic adjustment. Has also been seen by Derm and both the lesions (cheek and back) are benign. 10/24/23: Here for follow up. Finished a cross country trip with his ! Plans to snowbird to [place] in winter time. Reports was recently seen by cardiology for fluid overload detected by cardioMEMS. Around that time was experiencing increased abd distention and bloating. Torsemide had previously been decreased to 20 mg once daily and was increased to 40mg on Sunday and since then has already lost a couple lbs in this duration. He wonders if LUTS due to enlarged prostate are precluding full diuretic effect, and plans to talk to his PCP for a urologist referral. [facility] Medical History GERD (gastroesophageal reflux disease) Head and neck cancer Liver cirrhosis Hemoptysis COPD (chronic obstructive pulmonary disease) Tobacco use Hyperlipidemia Atrial fibrillation Claudication SOB (shortness of breath) CAD (coronary artery disease) Recurrent spontaneous pneumothorax SARANYA (obstructive sleep apnea) Hypertension Surgical History History of neck surgery History of lung surgery Hx of cardiac catheterization Hx of splenectomy History of abdominal paracentesis Hx of colonoscopy History of esophagogastroduodenoscopy (EGD) Hx of CABG Social History Patient Tobacco Use Status: Former Tobacco user Quit Date: 1980 Tobacco use type: Cigarette Years Smoked: 30+ Years Review of Systems Const All systems reviewed & are unremarkable except as noted in HPI and below Physical Exam Vital Signs: Last Vital Signs Pulse 76 10/24/23 12:25 BP 112/60 10/24/23 12:25 BMI result Body Mass Index 27.8 No acute distress Nonicteric Abdomen soft, mildly distended, small amount of shifting dullness Mild peripheral pitting edema Alert and oriented x3, no asterixis Assessment & Plan Assessment & Plan (1) Ascites: Code(s): R18.8 - Other ascites Category: Medical (2) Liver cirrhosis: Code(s): K74.60 - Unspecified cirrhosis of liver Category: Medical (3) Congestive heart failure: Code(s): I50.9 - Heart failure, unspecified Category: Medical Plan 1. Decompensated cirrhosis: MELD-Na 15; Child Class B Appears to be cardiac cirrhosis based on paracentesis labs and echocardiogram report. Based on exam today, appears to have room to increase the diuretic however, since adjustment was made just 2 days ago, will hold off changing any dose today. Advised patient to continue monitoring his weight, and will also review ultrasound imaging for any ascites. - Currently on Torsemide 40 mg once daily. Will benefit from adding spironolactone 100mg, but would defer to Cardiology as his R heart pressures are being closely monitored by them. - also advised him to talk to his PCP for Urology referral, to manage LUTS which is likely precluding full efficacy of the diuretics - Has PHG but no esophageal varices on most recent EGD. Next EGD will be due in 2024. - ultrasound abdomen without any focal lesion in March 2023. Due for repeat ultrasound, which has been ordered today. - updated meld labs Follow up in 3 months Orders: Orders Prothrombin Time INR Today K74.60 - Unspecified cirrhosis of liver US abdomen complete Today K74.60 - Unspecified cirrhosis of liver, R18.8 - Other ascites Complete Blood Count no Diff Today K74.60 - Unspecified cirrhosis of liver Comprehensive Met. Panel Today K74.60 - Unspecified cirrhosis of liver Coding Level of Care Code Est Pt Level 4 (56437) Diagnoses Ascites R18.8 Liver cirrhosis K74.60 Congestive heart failure I50.9
== END 2023-10-24 13:30 | disposition home or self-care (01) ==
PROVIDERS: PCP Internal Medicine; Visit Provider Internal Medicine
DX: R18.8 Other ascites (principal); K74.60 Unspecified cirrhosis of liver; I50.9 Heart failure, unspecified
CPT/HCPCS: 99214

== ENCOUNTER 2023-11-02 08:04 | Outpatient (REF) | payer MEDICARE, SELFPAY ==
--- NOTE | ~2023-11-02 | US_ITS ---
EXAMINATION: US ABDOMEN COMPLETE CLINICAL INFORMATION: Cirrhosis and ascites. COMPARISON: None available. TECHNIQUE: Real-time imaging of the abdominal viscera. FINDINGS: PANCREAS: Normal. ABDOMINAL AORTA: There is aneurysmal dilatation of the distal segment 4.0 x 3.9 cm.. INFERIOR VENA CAVA: Visualized portions are normal. LIVER: A benign, calcified granuloma is seen of the right lobe towards the dome. The liver is normal in size. The liver contour is normal. Parenchymal echogenicity is increased. No focal hepatic solid lesion. There are benign, simple cyst, which require no imaging follow-up. The largest is situated within the left lobe, measuring 2.1 cm. There is no intrahepatic biliary duct dilatation seen. GALLBLADDER: There are multiple layering gallstones, without sludge, polyps, wall thickening or pericholecystic fluid. COMMON BILE DUCT: Normal in caliber measuring 0.2 cm in diameter. RIGHT KIDNEY: At the upper pole, a 0.8 x 0.7 x 1.1 cm hyperechoic, nonshadowing focus is seen, without associated color Doppler flow. There are benign, simple cyst is again seen, the largest at the interpolar aspect measuring 1.1 cm. These require no imaging follow-up. No hydronephrosis. No renal calculi or focal parenchymal lesions. The kidney measures 12.5 cm in maximum dimension. LEFT KIDNEY: There are multiple benign, simple cysts, the largest at the upper pole measuring 7.1 cm. These require no imaging follow-up. No hydronephrosis. No renal calculi or focal parenchymal lesions. The kidney measures 11.7 cm in maximum dimension. SPLEEN: Surgically absent. FREE FLUID: None. US/US abdomen complete IMPRESSION: 1. There is generalized increase in hepatic echotexture, consistent with fatty infiltration or hepatocellular disease. Please correlate clinically. Provided history of cirrhosis noted. No focal hepatic mass or intrahepatic biliary dilatation is seen. 2. 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 This could be further evaluated with CT, if clinically indicated. 3. No ascites is seen. 4. There is a mild abdominal aortic aneurysm. Repeat ultrasound imaging surveillance is recommended at a one-year interval. Recommend Vascular Surgery consultation.
== END 2023-11-02 08:05 | disposition home or self-care (01) ==
LOC: HO.US 08:04
PROVIDERS: PCP Internal Medicine; Visit Provider Internal Medicine
DX: R18.8 Other ascites (principal); K74.60 Unspecified cirrhosis of liver
CPT/HCPCS: 76700

== ENCOUNTER 2023-11-19 13:00 | Outpatient (AMB) | payer MEDICARE, SELFPAY ==
--- NOTE | 2023-11-19 13:06 | A.OFFVIS_ITS ---
Vital Signs 11/19/23 13:07 Height 5 ft 10 in Weight 194 lb 0.108 oz BMI 27.8 BP 128/70 Blood Pressure Location Lt brachial Position Sitting Pulse 73 Pulse Source Pulse Oximeter Pulse Oximetry (%) 95 Oxygen Delivery Method Room Air Intake Visit Reasons: hemoptysis Allergies acetaminophen [From Percocet] Adverse Reaction (Severe, Verified 11/19/23 13:09) Headache oxycodone [From Percocet] Adverse Reaction (Severe, Verified 11/19/23 13:09) Headache meperidine [From Demerol] Adverse Reaction (Unknown, Verified 11/19/23 13:09) Headache Uphsxjw-MAX-KsA Reductase Inhibitor Adverse Reaction (Unknown, Verified 11/19/23 13:09) Muscle Pain HPI Comments Details: The patient is a 83-year-old gentleman with known history of head and neck cancer status post resection and likely had a lung resection as well, COPD now presenting with worsening cough in addition to hemoptysis. initially the patient had developed worsening shortness of breath and also significant lower extremity edema. Apparently he had been admitted to [facility]. I do not have those records. Was noted to have significant ascites. Patient was diuresed and also underwent a paracentesis. He probably also had additional imaging studies that I do not have available. Subsequently he was discharged feeling better. Although, his shortness of breath again worsen and started developing significant lower extremity edema. Meantime the patient started developing worsening cough also with evidence of hemoptysis. He went to an urgent care we had a chest x-ray demonstrating some postsurgical changes. it is not clear if the patient received any antibiotics. An urgent referral was sent to us. We did call him and also offered him a urgent appointment but he does not available. Ultimately the patient did have a CT scan of the chest ordered at [place]. I personally reviewed the CT scan with the patient. At least from a pulmonary standpoint the patient does have some emphysema in addition to that does have some evidence of chronic bronchitis. But more significant he has a dilated esophagus and also a partially visualized liver which appears to be cirrhotic. Explained to the patient that with having liver cirrhosis he is going to potentially have lower extremity edema and also ascites. Also delivery disease can resulted hip out of pulmonary conditions which can result in worsening respiratory symptoms. At this point the hemoptysis is now resolved. He does continue to have a significant cough. I did appreciate significant moderate rhonchi Issue. Therefore he did receive a nebulized treatment followed by a sputum culture. Unfortunately culture was contaminated and could not be process. He will also undergo blood work. I did provide him with a nebulizer for him to use at home for chest physical therapy that he can use in conjunction with his Acapella valve. He had bit on a maintenance inhaler but he stop did after no significant improvement. The patient seems to do better with the albuterol. Therefore will start him on albuterol nebs with the plan that we can always add inhaled cortical steroids depending on his response to therapy. With chronic bronchitis and likely some degree of reflux disease and laryngeal penetration this is likely resulting his chronic bronchitis. The addition of azithromycin will be helpful in improving promotility improving his chronic bronchitis symptoms. 07/17/2022 the patient is here for a pulmonary follow-up visit. The patient overall is feeling better. He is using the nebulizer with good response. He is also has the Acapella valve although he has not been using it. He needs to start using the chest physical therapy at least once a day. He does state that his cough is better and that he has hemoptysis is resolved. Although, he is noticing increase mucus production. The mucus seems to be clear. As far as his medications he does have Spiriva available at home. Therefore I did request that he can start at least once a day. On examination he still has some minimal rhonchi. Therefore, if he does not respond to the Spiriva item Wixela to the regimen be helpful. We did review his pulmonary function studies demonstrating moderate COPD. 10/18/2022 the patient is here for pulmonary follow-up visit. Overall the patient is still feeling better. He has not had to use the Acapella valve as much because he is no longer congested. No more hemoptysis appreciated his mucus. He did follow-up with GI regarding the cirrhosis. Appears to be more not make liver secondary to his right-sided heart failure. Therefore he was sent over to Cardiology and also sent over to [facility] were he has been evaluated for valvular disease. Is seems the patient will be undergoing a cardiac catheterization soon. I did request some results from that study. From a respiratory medications he is tolerating the Spiriva and has been using the albuterol. His respiratory exam is much improved. 11/19/2023 the patient is here for a pulmonary follow-up visit. He just got back from [place]. He seemed to be doing well there but when he got back to [facility] he started developing again some chest congestion. Not much in clear in color. He did have to use his nebulizer. He does have the Acapella valve although he has not used it as often. He continues with Spiriva that seems to be affecting beneficial he also has albuterol available if he needs it. He has not required. He is doing much better since she went underwent his cardiac intervention. He was being evaluated at [place] for valvular disease I do not have the details with his cardiac procedure. But after the procedure his respiratory status has improved dramatically. He feels a lot better. The patient also is following closely with GI regarding cirrhosis. He recently had an ultrasound waiting for the results. From a pulmonary standpoint though the patient is doing well I will have him undergo a chest x-ray to assess his pleural effusions that he has been noted to have in the past but from a clinical standpoint his respiratory exam is normal. [facility] Medical History GERD (gastroesophageal reflux disease) Head and neck cancer Liver cirrhosis Hemoptysis COPD (chronic obstructive pulmonary disease) Tobacco use Hyperlipidemia Atrial fibrillation Claudication SOB (shortness of breath) CAD (coronary artery disease) Recurrent spontaneous pneumothorax SARANYA (obstructive sleep apnea) Hypertension Surgical History History of neck surgery History of lung surgery Hx of cardiac catheterization Hx of splenectomy History of abdominal paracentesis Hx of colonoscopy History of esophagogastroduodenoscopy (EGD) Hx of CABG Social History Patient Tobacco Use Status: Former Tobacco user Tobacco use type: Cigarette Years Smoked: 30+ Years Review of Systems Const Denies fever(s) Eyes Denies change in vision ENT Reports dysphagia Card Denies chest pain Resp Denies change in phlegm color, Denies chest congestion, Reports cough, Denies hemoptysis and Denies wheezing GI Reports dysphagia, Reports dyspepsia and Reports heartburn Musc Denies abnormal gait Skin/Breast Denies rash Neuro Denies abnormal gait Steve/Lymph Denies easy bruising and Denies lymphadenopathy Aller/Immun Denies wheezing Physical Exam Vital Signs: Last Vital Signs Pulse 73 11/19/23 13:07 BP 128/70 11/19/23 13:07 Pulse Ox 95 11/19/23 13:07 Oxygen Delivery Method Room Air 11/19/23 13:07 BMI result Body Mass Index 27.8 Const General: comfortable HEENT Head: Yes atraumatic Eyes General: appearance normal, both eyes and all related structures Neck Neck: Yes supple Chest Chest palpation & inspection: normal inspection of the chest Resp Auscultation: no rhonchi and diminished lung sounds Cardio Rate: regular rate Rhythm: regular rhythm Heart sounds: S1 normal heart sound present and S2 normal heart sound present GI Auscultation: normal bowel sounds Skin Rashes: no rashes Extrem General: No clubbing, No cyanosis and Yes edema Assessment & Plan Assessment & Plan (1) COPD (chronic obstructive pulmonary disease): Code(s): J44.9 - Chronic obstructive pulmonary disease, unspecified Category: Medical Qualifiers: COPD type: chronic bronchitis Chronic bronchitis type: mucopurulent Qualified Code(s): J41.1 - Mucopurulent chronic bronchitis (2) Head and neck cancer: Code(s): C76.0 - Malignant neoplasm of head, face and neck Category: Medical Plan Nebulizer therapy followed by CPT with aerobika/acapella as needed continue Spiriva BULMARO as needed diuresis as tolerated CXR F/U 10-12 months Orders: Orders XR chest 2V Today J41.1 - Mucopurulent chronic bronchitis Coding Level of Care Code Est Pt Level 4 (09354) Diagnoses Mucopurulent chronic bronchitis J41.1 COPD type: chronic bronchitis Chronic bronchitis type: mucopurulent Head and neck cancer C76.0 Time Spent (min) 16
[2023-11-19 13:07] VITALS: BP 128/70; PULSE 73; O2SAT 95; BMI 27.8
== END 2023-11-19 13:30 | disposition home or self-care (01) ==
PROVIDERS: PCP Internal Medicine; Visit Provider Hospitalist
DX: J41.1 Mucopurulent chronic bronchitis (principal); C76.0 Malignant neoplasm of head, face and neck
CPT/HCPCS: 99214

== ENCOUNTER → 2023-11-19 13:00 | Outpatient (BNVA) | payer MEDICARE, SELFPAY | PROVIDERS: PCP Internal Medicine; Visit Provider Hospitalist | DX: J41.1 Mucopurulent chronic bronchitis (principal); C76.0 Malignant neoplasm of head, face and neck | CPT/HCPCS: 99212 ==

== ENCOUNTER 2024-04-25 08:03 | Outpatient (REF) | payer MEDICARE, SELFPAY ==
--- NOTE | ~2024-04-25 | US_ITS ---
EXAMINATION: US ABDOMEN COMPLETE CLINICAL INFORMATION: Unspecified cirrhosis of liver. COMPARISON: Ultrasound abdomen 11/02/2023 and 04/10/2023. MRI abdomen 09/12/2022. TECHNIQUE: Real-time imaging of the abdominal viscera. FINDINGS: PANCREAS: The visualized portion of the pancreas head and body are normal, portion of the pancreatic body and tail, not visualized are obscured by bowel gas. ABDOMINAL AORTA: Aneurysmal dilatation of the aorta measure up to 4.2 x 4.5 cm INFERIOR VENA CAVA: Visualized portions are normal. LIVER: There are liver cysts the one in the right lobe 0.9 cm, the left lobe 1.6 cm, additional cyst right lobe 1.7 cm. The liver is normal in size. The liver contour is normal. Increased echogenicity of the liver parenchyma, this can be seen in the setting of hepatic steatosis or liver parenchymal disease. Echogenic lesion in the liver 9 mm could be a small calcified granuloma There is no intrahepatic biliary duct dilatation seen. GALLBLADDER: Thickening of the gallbladder wall measure up to 4 mm. There are multiple gallstones. No tenderness reported. No pericholecystic fluid. This is nonspecific. COMMON BILE DUCT: Normal in caliber measuring 0.2 cm in diameter. RIGHT KIDNEY: There are renal cysts the largest upper pole 1.1 cm. No hydronephrosis or renal calculi. The kidney measures 12.1 cm in maximum dimension. LEFT KIDNEY: Multiple cysts the largest upper pole 6.4 cm lower pole 1.4 cm. No hydronephrosis or renal calculi. The kidney measures 12.3 cm in maximum dimension. SPLEEN: Surgically absent. FREE FLUID: None. US/US abdomen complete IMPRESSION: 1. Abdominal aortic aneurysm maximal diameter 4.5 cm. 2. Increased echogenicity of the liver parenchyma, this can be seen in the setting of hepatic steatosis or liver parenchymal disease. 3. Bilateral renal cysts. 4. Cholelithiasis. There is mild thickening of the gallbladder wall measuring up to 4 mm, this is nonspecific, no tenderness, no pericholecystic fluid, no other signs of cholecystitis. If there is high index of suspicion for possible cholecystitis, May consider correlation with follow-up HIDA scan. Electronically signed by: Kyle Broussard MD 04/27/2024 07:30 PM [facility]
== END 2024-04-25 08:04 | disposition home or self-care (01) ==
LOC: HO.US 08:03
PROVIDERS: Visit Provider Internal Medicine
DX: K74.60 Unspecified cirrhosis of liver (principal)
CPT/HCPCS: 76700